=== PATIENT | female | born 1995 | race Caucasian/White ===

== ENCOUNTER → 2020-06-14 | Outpatient (CLI) | payer BC, OTHER ==
[~2020-06-14] MED LIST: BENTYL 20MG TAB20 MG PO; COLACE 100MG C100 MG PO; IBUPROFEN800 MG PO; IRON325 M1 PO; NORCO 5-325 TA1 EACH PO; PEPCID20 MG PO; PRENATAL DHA200 MG PO; REGLAN10 MG PO; SINGULAIR10 MG PO
[2020-06-14 09:53] LABS: HEMOGLOBIN 10.2 gm/dl (12.3-15.3); RED BLOOD COUNT 4.23 M/UL (4.00-5.10); WHITE BLOOD COUNT 4.5 K/UL (4.5-11.0)
[2020-06-14 10:23] LABS: BUN/CREATININE RATIO 12 (0-10)
[2020-06-15 08:14] LABS: VITAMIN D, 25-HYDROXY 20.2 ng/mL (30.0-100.0)
[2020-06-15 09:14] LABS: TRIIODOTHYRONINE (T3) 212 ng/dL (71-180)
[2020-06-15 12:14] LABS: RHEUMATOID ARTHRITIS FACTOR 10.3 IU/mL (0.0-13.9)
== END ==
LOC: LAB 09:00
PROVIDERS: Nurse Practitioner Family
DX: Z13.220 Encounter for screening for lipoid disorders (principal); M79.10 Myalgia, unspecified site; R42 Dizziness and giddiness; K62.5 Hemorrhage of anus and rectum; Z86.2 Personal history of diseases of the blood and blood-forming organs and certain disorders involving the immune mechanism
CPT/HCPCS: 36415; 80053; 80061; 84436; 84443; 84480; 85025; 85652; 86038; 86140; 86431

== ENCOUNTER → 2020-06-21 | Outpatient (CLI) | payer BC, OTHER ==
[2020-06-21 11:25] LABS: HEMOGLOBIN 10.5 gm/dl (12.3-15.3); RED BLOOD COUNT 4.37 M/UL (4.00-5.10); WHITE BLOOD COUNT 6.7 K/UL (4.5-11.0)
== END ==
LOC: LAB 11:03
PROVIDERS: Nurse Practitioner Family
DX: D64.9 Anemia, unspecified (principal)
CPT/HCPCS: 36415; 82728; 83540; 83550; 85025; 85045

== ENCOUNTER → 2020-07-18 | Outpatient (CLI) | payer OTHER ==
[2020-07-18 11:30] LABS: HEMOGLOBIN 12.5 gm/dl (12.3-15.3); RED BLOOD COUNT 4.78 M/UL (4.00-5.10); WHITE BLOOD COUNT 6.1 K/UL (4.5-11.0)
== END ==
LOC: LAB 10:22
PROVIDERS: Nurse Practitioner Family
DX: D64.9 Anemia, unspecified (principal); E78.5 Hyperlipidemia, unspecified; E55.9 Vitamin D deficiency, unspecified
CPT/HCPCS: 36415; 80061; 85025

== ENCOUNTER 2022-01-17 07:59 | Emergency (ER) | payer OTHER ==
[2022-01-17 09:03] LABS: RED BLOOD COUNT 2.97 M/UL (4.00-5.10); WHITE BLOOD COUNT 3.1 K/UL (4.5-11.0)
[2022-01-17 09:17] LABS: BUN/CREATININE RATIO 15 (0-10)
== END 2022-01-17 17:59 | disposition home or self-care (01) ==
LOC: ER1 07:59
PROVIDERS: Student in an Organized Health Care Education/Training Program
DX: D64.9 Anemia, unspecified (principal); K64.9 Unspecified hemorrhoids; F17.200 Nicotine dependence, unspecified, uncomplicated; Z88.0 Allergy status to penicillin
CPT/HCPCS: 36430; 71045; 80053; 84703; 85025; 86850; 86900; 86901; 86920; 99284; P9016